=== PATIENT | male | born 1995 | race African-American/Black ===

== ENCOUNTER 2016-09-22 02:52 | Emergency (ER) | payer OTHER ==
[~2016-09-22] VITALS: Ht 180.3 cm; Wt 70.6 kg
[2016-09-22 02:54] VITALS: TEMP 36.7; Ht 180.3 cm; Wt 70.6 kg
[2016-09-22 04:22] VITALS: BP 122/81; PULSE 74; O2SAT 99
--- NOTE | 2016-09-23 02:57 | EMERGENCY ROOM VISIT NOTE ---
History First contact with patient: 03:19 Chief Complaint: CHOKING Stated Complaint: CHOKING,SALIVATING,ETC Nursing Triage Summary: Pt reports he choked over chicken tonight. Pt was unable to swallow but it has resolved now. Pt given water and able to swallow. History of Present Illness The patient is a 21 year old male who presents to the Emergency Room with complaints of choking after eating Sinhala food this evening. The patient states that he coughed and began choking. He had a period of about one hour that he was unable to swallow or handle his own saliva. The patient now presents to the emergency department for evaluation. He is currently with improving symptoms, and is no longer drooling. He is able to breathe and talk. The patient states that he had one episode like this previously his lifetime, but has never followed with GI. He does not report chronic medical disease and considers himself otherwise usually healthy. He rates his discomfort a 1/10. Review of Systems More than 10 systems were reviewed and otherwise negative with the exception of history of present illness. Past Medical/Surgical History No chronic medical disease Family History No pertinent family history Social History Smoking Status: Never Smoker Occupation Status: [employer] student Current/Historical Medications No Active Prescriptions or Reported Meds Allergies Coded Allergies: Peanut (Verified Allergy, Severe, THROAT SWELLS, GI UPSET, 09/22/16) Shellfish (Verified Allergy, Severe, SHORTNESS OF BREATH, 09/22/16) Physical Exam Vital Signs Date Time Temp Pulse Resp B/P Pulse Ox O2 Delivery O2 Flow Rate FiO2 09/22/16 04:22 74 16 122/81 99 09/22/16 02:54 36.7 76 18 126/81 97 Room Air Pain Rating (0-10): 0 Physical Exam VITALS: Vitals are noted on the nurse's note and reviewed by myself. Vital signs stable. GENERAL: Well-developed, well-nourished, black male, who is in no acute distress and resting comfortably. Patient is cooperative with the examination. HEAD: Normocephalic atraumatic. NOSE: Patent, turbinates without inflammation or discharge. MOUTH: Mucous membranes moist. Tonsils are not enlarged. Pharynx without erythema, blood, or exudate. Uvula midline. Airway patent. No foreign body appreciated NECK: Supple without nuchal rigidity. No lymphadenopathy. No thyromegaly. Cervical spine is nontender. HEART: Regular rate and rhythm without murmurs gallops or rubs. LUNGS: Clear to auscultation bilaterally without wheezes, rales or rhonchi. No retractions or accessory muscle use. Medical Decision & Procedures ED Course Physical exam and history were performed. Nursing notes and EMR were reviewed. Patient appears to have a foreign body sensation in his throat. The patient does not appear toxic at this time, and his exam is benign. He states that his symptoms are improving spontaneously. The patient and I had a lengthy discussion regarding options of care. He was able to drink water here in the department. Afterwards he was able to tolerate apple sauce by mouth. The patient does not have significant airway compromise at this point. He is able to tolerate soft foods and liquids. The case was discussed with my attending physician, and we will have the patient follow with GI as an outpatient. The patient is to remain on a soft food and liquid diet. He was certainly invited back to the ER with any new, worsening, or concerning symptoms. He voices understanding and was pleased with this plan. He rated his discomfort a 0/10 at the time of departure. The chart was completed utilizing [employer] Speech Voice Recognition Software. Grammatical errors, random word insertions, pronoun errors, and incomplete sentences are an occasional consequence of this system due to software limitations, ambient noise, and hardware issues. Any formal questions or concerns about the content, text, or information contained within the body of this dictation should be directly addressed to the provider for clarification. . Medical Decision Differential diagnosis includes, but is not limited to: Aspiration, foreign-body , choking, airway obstruction, and others Impression Primary Impression: Sensation of foreign body in throat Departure Information Dispostion Home / Self-Care Condition GOOD Prescriptions No Active Prescriptions or Reported Meds Forms HOME CARE DOCUMENTATION FORM, IMPORTANT VISIT INFORMATION Patient Instructions My [facility] Additional Instructions You were seen and evaluated today on an emergency basis only. This is not a substitute for, or an effort to provide, complete comprehensive medical care. It is not possible to recognize and treat all injuries or illnesses in a single emergency department visit. For this reason it is recommended that you followup with Gastroenterology upon returning home for ongoing care and evaluation. Please eat a soft food and liquid diet until seen by gastroenterology. You are welcome to return to the emergency department anytime with new, worsening, or concerning symptoms.
== END 2016-09-22 04:22 | disposition home or self-care (01) ==
LOC: C.EDB 02:53
DX: R09.89 Other specified symptoms and signs involving the circulatory and respiratory systems (principal); Z91.010 Allergy to peanuts; Z91.018 Allergy to other foods